=== PATIENT | female | born 1995 | race American Indian/Alaskan Native ===

== ENCOUNTER 2016-09-27 16:31 | Emergency (ER) | payer MEDICAID ==
[2016-09-27 22:29] LABS: Bilirubin,Urine NEG (Negative); Blood,Urine NEG (Negative); Ketones,Urine TR mg/dL (Negative); Leukocyte Esterase,Urine NEG (Negative); Mucus,Urine 3+ /HPF; Nitrite,Urine NEG (Negative); Protein,Urine <15 mg/dL mg/dL (Negative); Urobilinogen,Urine < 2.0 mg/dL (<2.0)
[2016-09-27 22:39] LABS: Basophils % (Auto) 0.4 % (0.0-1.8); Eosinophils % (Auto) 0.5 % (0.0-4.3); Hematocrit 37.2 % (30.3-42.9); Hemoglobin 12.2 gm/dl (10.1-14.3); Mean Corpuscular HGB Conc 33 % (30-34); Mean Corpuscular Hemoglobin 30 pg (28-32); Mean Corpuscular Volume 93 fl (79-97); Platelet Count 234 K/mm3 (140-440); Red Blood Count 4.02 M/mm3 (3.65-5.03); Red Cell Distribution Width 15.1 % (13.2-15.2); White Blood Count 9.9 K/mm3 (4.5-11.0)
--- NOTE | 2016-09-28 00:38 | Ultrasound Report ---
FINAL REPORT EXAM: US OB TRANSVAGINAL HISTORY: vaginal bleeding COMPARISON: None available. TECHNIQUE: Several real-time grayscale and color Doppler images were obtained. Transabdominal and transvaginal exam. FINDINGS: The uterus measures 7.9 x 4.5 x 5.8 centimeters. Endometrial stripe measures 15 millimeters. No IUP. Trace free fluid in the pelvis. Right ovary measures 2.8 x 2.2 x 2.9 centimeters. Left ovary measures 2.6 x 1.7 x 1.9 centimeters. Within the right ovary there is a 1.7 centimeter cystic structure which may reflect corpus luteum. In the left adnexal region adjacent to the ovary, there is a soft tissue structure measuring 1.6 x 2.5 x 1.7 centimeters. Yolk sac is present within the area of central cystic change. No pole identified. Findings are compatible with ectopic on the right. There is vascular flow to the ovaries. IMPRESSION: Left adnexal soft tissue structure with central area of cystic change containing a yolk sac. Findings are compatible with ectopic on the left. Trace free fluid in the pelvis which appears simple at this time. No evidence of ectopic rupture at this time. No IUP. There is vascular flow to the bilateral ovaries.
--- NOTE | 2016-09-28 00:39 | Ultrasound Report ---
FINAL REPORT EXAM: US OB < = 14 WEEKS FETUS HISTORY: vaginal bleeding COMPARISON: None of this . TECHNIQUE: Several real-time grayscale and color Doppler images were obtained. Transabdominal and transvaginal exam. FINDINGS: The uterus measures 7.9 x 4.5 x 5.8 centimeters. Endometrial stripe measures 15 millimeters. No IUP. Trace free fluid in the pelvis. Right ovary measures 2.8 x 2.2 x 2.9 centimeters. Left ovary measures 2.6 x 1.7 x 1.9 centimeters. Within the right ovary there is a 1.7 centimeter cystic structure which may reflect corpus luteum. In the left adnexal region adjacent to the ovary, there is a soft tissue structure measuring 1.6 x 2.5 x 1.7 centimeters. Yolk sac is present within the area of central cystic change. No pole identified. Findings are compatible with ectopic on the right. There is vascular flow to the ovaries. IMPRESSION: Left adnexal soft tissue structure with central area of cystic change containing a yolk sac. Findings are compatible with ectopic on the left. Trace free fluid in the pelvis which appears simple at this time. No evidence of ectopic rupture at this time. No IUP. There is vascular flow to the bilateral ovaries.
[2016-09-28] MEDS ORDERED: METHOTREXATE IM ONE (01:32)
--- NOTE | 2016-09-28 01:32 | Emergency Department Report ---
ED HPI - General Chief complaint: Vaginal Bleeding Stated complaint: LOWER L ABD PAIN/POSS ECTOPIC Source: patient Mode of arrival: Ambulatory Limitations: No Limitations - History of Present Illness Initial comments: Patient is a 20-year-old female with history of multiple ectopics presented today because of pelvic pain and vaginal spotting. Patient patient states that symptoms started yesterday. States that the pain got worse which is why she presented today. Has no associated nausea vomiting diarrhea. Concerned that this may be another ectopic. - Related Data Home Medications Medication Instructions Recorded Confirmed Last Taken No Known Home Medications [No 09/27/16 09/27/16 Unknown Reported Home Medications] Allergies Allergy/AdvReac Type Severity Reaction Status Date / Time peanut Allergy Swelling Verified 09/27/16 17:08 ED Review of Systems ROS: Stated complaint: LOWER L ABD PAIN/POSS ECTOPIC Other details as noted in HPI Comment: All other systems reviewed and negative Constitutional: denies: chills, fever Respiratory: denies: cough Cardiovascular: denies: chest pain Gastrointestinal: abdominal pain Genitourinary: denies: dysuria Skin: denies: rash Psychiatric: denies: anxiety ED Past Medical Hx - Past Medical History Hx Asthma: Yes Additional medical history: ectopic X 2 - Surgical History Past Surgical History?: No - Social History Smoking Status: Current Every Day Smoker Substance Use Type: Alcohol, Other - Medications Home Medications: Home Medications Medication Instructions Recorded Confirmed Last Taken Type No Known Home Medications [No 09/27/16 09/27/16 Unknown History Reported Home Medications] ED Physical Exam - General Limitations: No Limitations General appearance: alert, in no apparent distress - Head Head exam: Present: atraumatic - ENT ENT exam: Present: normal exam - Respiratory Respiratory exam: Present: normal lung sounds bilaterally. Absent: respiratory distress - Cardiovascular Cardiovascular Exam: Present: regular rate, normal rhythm - GI/Abdominal GI/Abdominal exam: Present: soft. Absent: distended, tenderness, guarding - Speculum exam: Present: other (small amount of vaginal bleeding) Bi-manual exam: Present: other (left adnexal and uterine tenderness, cervix closed) - Neurological Exam Neurological exam: Present: alert, oriented X3 - Psychiatric Psychiatric exam: Present: normal affect - Skin Skin exam: Absent: rash ED Course Vital Signs 09/27/16 17:10 Temperature 97.9 F Pulse Rate 83 Respiratory 17 Rate Blood Pressure 113/65 O2 Sat by Pulse 100 Oximetry - Reevaluation(s) Reevaluation #1: 09/28/16 01:45 I discussed the results and the plan of taking methotrexate with the patient. Patient is comfortable with taking methotrexate as she has taken it twice before for ectopic pregnancies. All questions were answered. - Consultations Consultation #1: 09/28/16 01:[address] 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 Recommended methotrexate treatment with follow- up in the office on Monday. ED Medical Decision Making - Lab Data Result diagrams: 09/27/16 22:09 Critical care attestation.: If time is entered above; I have spent that time in minutes in the direct care of this critically ill patient, excluding procedure time. ED Disposition Clinical Impression: Ectopic Qualifiers: Location of ectopic : tubal Intrauterine status: without intrauterine Qualified Code(s): O00.10 - Tubal without intrauterine Disposition: DISCHARGED TO HOME OR SELFCARE Is pt being admited?: No Does the pt Need Aspirin: No Condition: Stable Instructions: Ectopic (ED) Additional Instructions: [facility] [employer] [facility] [facility]. He must call the office tomorrow so that you can receive an appointment on Monday. Return to emergency room immediately if he have any lightheadedness, worsening pain, significant bleeding or any new symptoms. Make sure to avoid eating a lot of greens and veggies as well as decrease sun exposure due to being on methotrexate. Referrals: PRIMARY CARE, [Primary Care Provider] - 3-5 Days
[2016-09-28] MEDS ORDERED: TORADOL IM ONE (01:45)
[2016-09-28 04:01] VITALS: BP 119/65
== END 2016-09-28 04:04 | disposition home or self-care (01) ==
LOC: ED 16:31
DX: O00.10 Tubal pregnancy without intrauterine pregnancy (principal); J45.909 Unspecified asthma, uncomplicated; F17.200 Nicotine dependence, unspecified, uncomplicated; Z91.010 Allergy to peanuts; Z3A.00 Weeks of gestation of pregnancy not specified
CPT/HCPCS: 36415; 76801; 76817; 81001; 84702; 85025; 86850; 86900; 86901; 96372; 99284; J1885; J9260

== ENCOUNTER 2016-09-29 09:36 | Inpatient (IN) | payer MEDICAID ==
[2016-09-29] MEDS ORDERED: ACD-A IV ONE (10:00)
[2016-09-29 10:41] LABS: Basophils % (Auto) 0.4 % (0.0-1.8); Eosinophils % (Auto) 0.5 % (0.0-4.3); Hematocrit 32.2 % (30.3-42.9); Hemoglobin 10.8 gm/dl (10.1-14.3); Mean Corpuscular HGB Conc 34 % (30-34); Mean Corpuscular Hemoglobin 31 pg (28-32); Mean Corpuscular Volume 93 fl (79-97); Platelet Count 183 K/mm3 (140-440); Red Blood Count 3.46 M/mm3 (3.65-5.03); Red Cell Distribution Width 14.7 % (13.2-15.2); White Blood Count 7.7 K/mm3 (4.5-11.0)
[2016-09-29 10:56] LABS: Blood Urea Nitrogen 9 mg/dL (7-17); Calcium 8.4 mg/dL (8.4-10.2); Carbon Dioxide 23 mmol/L (22-30); Glucose 108 mg/dL (65-100)
[2016-09-29 10:57] LABS: Anion Gap 16 mmol/L; Chloride 103.7 mmol/L (98-107); Potassium 3.8 mmol/L (3.6-5.0); Sodium 139 mmol/L (137-145)
[2016-09-29] MEDS ORDERED: ZOFRAN IV ONE (11:25)
--- NOTE | 2016-09-29 11:32 | Emergency Department Report ---
HPI - General Chief Complaint: Abdominal Pain Time Seen by Provider: 09/29/16 11:13 - HPI HPI: Room 1 The patient is a 20-year-old female presenting with a chief complaint of pelvic pain. Patient was seen 09/27/2016 diagnosed with a left ectopic . Patient was given methotrexate and told to follow-up with [facility] on 09/30/2016. The patient states she awakened this morning at 06:00 and felt nauseous. Patient states she took her daughter to school this stopping drinking talya zara and Gatorade went back to bed. The patient states she got up at 08:20 with severe "wave of nausea." The patient states she went to the bathroom and another "severe wave of nausea and "hit her and she began vomiting. The patient states immediately after vomiting she developed severe abdominal pain and bilateral lower quadrants radiating to her back. The patient states the pain is been constant and severe since. Patient states she has had vaginal spotting since she initially presented to the ED and this has not changed. Location: Pelvis, back Duration: [see above] Quality: Pain Severity: Severe Modifying factors: [see above] Context: [see above] Mode of transportation: [not driving] ED Past Medical Hx - Past Medical History Previous Medical History?: Yes Hx Asthma: Yes Additional medical history: ectopic X 2 - Surgical History Past Surgical History?: No - Family History Family history: no significant - Social History Smoking Status: Current Every Day Smoker (1/7 pack per day) Substance Use Type: None (denies illicit drug use), Alcohol (occasional) - Medications Home Medications: Home Medications Medication Instructions Recorded Confirmed Last Taken Type Ibuprofen [Motrin] 600 mg PO Q8H PRN #14 tablet 09/28/16 09/29/16 09/29/16 Rx oxyCODONE /ACETAMINOPHEN [Percocet 1 tab PO Q6HR PRN #8 tablet 09/28/1609/29/16 Rx 5/325] ED Review of Systems ROS: Stated complaint: ABD PAIN/ECTOPIC Other details as noted in HPI Comment: All other systems reviewed and negative Constitutional: denies: chills, fever Eyes: denies: eye pain, eye discharge, vision change ENT: denies: ear pain, throat pain Respiratory: denies: cough, shortness of breath, wheezing Cardiovascular: denies: chest pain, palpitations Endocrine: no symptoms reported Gastrointestinal: abdominal pain, nausea, vomiting Genitourinary: abnormal menses Musculoskeletal: denies: back pain, joint swelling, arthralgia Skin: denies: rash, lesions Neurological: denies: headache, weakness, paresthesias Psychiatric: denies: anxiety, depression Hematological/Lymphatic: denies: easy bleeding, easy bruising Physical Exam - Physical Exam Vital Signs: Vital Signs 09/29/16 09/29/16 09/29/16 09:42 09:49 09:52 Pulse Rate 92 H 85 85 Respiratory 22 16 16 Rate Blood Pressure 106/38 106/38 Blood Pressure 106/38 [Left] O2 Sat by Pulse 100 100 Oximetry 09/29/16 09/29/16 09/29/16 09:53 10:00 11:00 Pulse Rate 81 101 H Respiratory 16 22 26 H Rate Blood Pressure 110/67 118/71 Blood Pressure [Left] O2 Sat by Pulse 100 100 Oximetry Physical Exam: GENERAL: The patient is well-developed well-nourished female lying on stretcher. Be in moderate discomfort. [] HEENT: Normocephalic. Atraumatic. Extraocular motions are intact. Patient has moist mucous membranes. NECK: Supple. Trachea midline CHEST/LUNGS: Clear to auscultation. There is no respiratory distress noted. HEART/CARDIOVASCULAR: Regular. There is no tachycardia. There is no gallop rub or murmur. ABDOMEN: Abdomen is soft, with diffuse tenderness palpation but greatest in the left lower quadrant. Patient has normal bowel sounds. There is no abdominal distention. SKIN: There is no rash. There is no edema. There is no diaphoresis. NEURO: The patient is awake, alert, and oriented. The patient is cooperative. The patient has normal speech MUSCULOSKELETAL: There is no evidence of acute injury. ED Course Vital Signs 09/29/16 09/29/16 09/29/16 09:42 09:49 09:52 Pulse Rate 92 H 85 85 Respiratory 22 16 16 Rate Blood Pressure 106/38 106/38 Blood Pressure 106/38 [Left] O2 Sat by Pulse 100 100 Oximetry 09/29/16 09/29/16 09/29/16 09:53 10:00 11:00 Pulse Rate 81 101 H Respiratory 16 22 26 H Rate Blood Pressure 110/67 118/71 Blood Pressure [Left] O2 Sat by Pulse 100 100 Oximetry - Consultations Consultation #1: 09/29/16 11:28 [facility] [employer] paged Consultation #2: 09/29/16 13:23 Dr. Brooke paged 13:[address] Brooke. Requests that the patient be sent to OR holding in preparation for surgery 09/29/16 13:45 ED Medical Decision Making - Lab Data Result diagrams: 09/29/16 10:21 09/29/16 10:21 Laboratory Tests 09/29/16 09/29/16 09/29/16 10:21 10:21 10:21 WBC 7.7 RBC 3.46 L Hgb 10.8 Hct 32.2 MCV 93 MCH 31 MCHC 34 RDW 14.7 Plt Count 183 Lymph % (Auto) 8.2 L [place] % (Auto) 5.5 Eos % (Auto) 0.5 Baso % (Auto) 0.4 Lymph # 0.6 L [place] # 0.4 Eos # 0.0 Baso # 0.0 Seg Neutrophils % 85.4 H Seg Neutrophils # 6.6 Sodium 139 Potassium 3.8 Chloride 103.7 Carbon Dioxide 23 Anion Gap 16 BUN 9 Creatinine 0.6 L Estimated GFR > 60 BUN/Creatinine Ratio 15.00 Glucose 108 H Calcium 8.4 HCG, Quant 9428 H Blood Type Antibody Screen 09/29/16 10:25 WBC RBC Hgb Hct MCV MCH MCHC RDW Plt Count Lymph % (Auto) [place] % (Auto) Eos % (Auto) Baso % (Auto) Lymph # [place] # Eos # Baso # Seg Neutrophils % Seg Neutrophils # Sodium Potassium Chloride Carbon Dioxide Anion Gap BUN Creatinine Estimated GFR BUN/Creatinine Ratio Glucose Calcium HCG, Quant Blood Type O POSITIVE Antibody Screen Negative - Radiology Data Radiology results: report reviewed (pelvic ultrasound), image reviewed (pelvic ultrasound) Pelvic ultrasound (results called at 13:22)- 7 cm hematoma surrounding previously visualized ectopic in the left adnexa. Free fluid that is complex in the pelvis - Differential Diagnosis ectopic Critical care attestation.: If time is entered above; I have spent that time in minutes in the direct care of this critically ill patient, excluding procedure time. 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
[2016-09-29] MEDS ORDERED: SUBLIMAZE IV ONE (11:49)
--- NOTE | 2016-09-29 13:33 | Ultrasound Report ---
Transabdominal and transvaginal OB ultrasound. History: Left pelvic pain status post methotrexate treatment for known ectopic . Findings: Comparison is made to the previous study on September 27, 2016. The complex mass consistent with necrotic is again identified on the left, but there has been marked interval change with interval development of a large complex collection surrounding the ectopic measuring approximately 7.8 x 3.4 x 7.2 cm. A yolk sac is still identified centrally and possible cardiac activity is seen. In addition, there is a fluid in the left adnexa and cul-de-sac which is complex consistent with hemorrhage. The uterus is empty with thickening of the endometrial echo. The right ovary is unremarkable. Impression: Interval development of complex collection and free fluid surrounding the left ectopic consistent with rupture. Comment: These findings were given by telephone to the emergency room physician at 1:20 PM on September 29.
[2016-09-29] MEDS ORDERED: NACL 0.9% 500 ML 500 ML IV ONE (13:46)
--- NOTE | 2016-09-29 13:47 | Admit Criteria Form ---
Admission Criteria Documentation: OBSTETRIC AND GYNECOLOGIC DISEASE GRG Clinical Indications for Admission to Inpatient Care (Place 'X' for any and all applicable criteria): Hospital admission is needed for appropriate care of the patient because of ANY ONE of the following (1)(2)(3): [ ]I. Hemodynamic instability, as indicated by ALL of the following (1)(2)(3)( 4)(5): [ ]a) Vital signs or other findings not as expected for chronic patient condition or baseline [ ]b) Instability indicated by ANY ONE of the following: [ ]i) Hypotension [ ]ii) Symptomatic tachycardia unresponsive to treatment (eg, analgesia, fluids, sedation as indicated) [ ]iii) Inadequate perfusion indicated by ANY ONE of the following: [ ]A. Lactic acidosis (greater than 2 mmol/ L) [ ]B. New abnormal capillary refill ( greater than 3 seconds) [ ]C. Reduced urine output [ ]D. New altered mental status [ ]iv) Orthostatic vital sign changes unresponsive to treatment (eg, fluids) [ ]v) Multiple IV fluid boluses required to maintain adequate blood pressure or perfusion [ ]vi) IV inotropic or vasopressor medication required to maintain adequate blood pressure or perfusion [ ]II. Obstetric infection requiring hospitalization indicated by ANY ONE of the following(13)(14): [ ]a) Chorioamnionitis [ ]b) Endometritis (except mild endometritis) [ ]c) Pelvic abscess [ ]d) Peritonitis [ ]e) Septic pelvic thrombophlebitis [ ]III. Amniotic fluid or pulmonary embolism(4)(5)(6) [X]IV. Suspected peritonitis or ectopic requiring monitoring beyond scope of 24 hours or observation care(7)(8) [ ]V. compromise requiring hospitalization indicated by ALL of the following(9)(10): [ ]a) compromise indicated by ANY ONE of the following(11): [ ]i) Abnormal heart rate monitoring [ ]ii) Abnormal contraction stress test [ ]iii) Abnormal biophysical profile [ ]iv) Abnormal Doppler flow in vessels (ie, Doppler velocimetry) (12) [ ]b) Persistence of compromise indicators during evaluation and observation monitoring [ ]. Ovarian hyperstimulation syndrome requiring hospitalization[A] indicated by ALL of the following(15): [ ]a) Recent ovarian stimulation with gonadotropins, or evidence on ultrasound of spontaneous emergence of large number of ovarian follicles [ ]b) Evidence of severe ovarian hyperstimulation syndrome indicated by ANY ONE of the following: [ ]i) Abdominal pain unresponsive to oral therapy [ ]ii) Acute respiratory distress syndrome [ ]iii) Electrolyte imbalance ( eg, hyponatremia, hyperkalemia) [ ]iv) Elevated liver enzymes [ ]v) Evidence of thromboembolism [ ]vi) Hemoconcentration (hematocrit greater than 45 % (0.45)) [ ]vii) Inability to maintain oral intake adequate to prevent hemoconcentration [ ]viii) Marked hypotension from baseline (eg, SBP 20 mmHg below patients usual pressure) [ ]ix) Oliguria or anuria [ ]x) Ovarian torsion [ ]xi) Pleural or pericardial effusion on x-ray or echocardiogram [ ]xii) Rapid increase in serum creatinine to greater than 1.2 mg/dL (106 micromoles/L) or creatinine clearance less than 50 mL/min/1.73m2 (0.84 mL/ sec/1.73m2) [ ]xiii) Ruptured ovarian cyst with hemorrhage [ ]xiv) Severe abdominal pain or peritoneal signs [ ]xv) Tense ascites that cannot be managed with paracentesis in outpatient setting [ ]VII.Pelvic infection requiring hospitalization indicated by ANY ONE of the following (16): [ ]a) Outpatient treatment has failed or is not appropriate (eg, inpatient monitoring required) [ ]b) Pelvic abscess [ ]c) Surgical emergency cannot be excluded (eg, rigid abdomen) [ ]d) Vomiting precluding outpatient and observation care management VIII. loss complications requiring inpatient medical treatment indicated by ANY ONE of the following (4)(7)(9): [ ]a) Fever [ ]b) Peritonitis [ ]c) Sepsis [ ]d) Severe abdominal pain [ ]IX. or patient requiring monitoring for severe heart failure, pulmonary disease, or other comorbid condition (eg, peripartum cardiomyopathy) (4)(17) [ ]X. patient with rupture of membranes requiring hospitalization indicated by ANY ONE of the following: [ ]a) Chorioamnionitis, cloudy amniotic fluid, or other evidence of infection [ ]b) compromise or other need for monitoring (11) [ ]c) Gestation longer than 23 weeks and ANY ONE of the following: [ ]i) Abnormal (noncephalic) presentation [ ]ii) Inadequate home environment (eg, home too far from hospital, unable to rapidly return to hospital) [ ]d) Temperature greater than 100.4 degrees F (38 degrees C)( oral) [ ]e) Threatened labor requiring monitoring beyond scope (eg, over 24 hours) of observation Care [ ] XI. complications, including severe lacerations, infections, or retained placenta (19) [ ] XII.Uterine bleeding with high-risk features indicated by ANY ONE of the following (4): [ ]a) Active major hemorrhage (eg, hemorrhage) [ ]b) Coagulopathy with active bleeding [ ]c) Gestational trophoblastic disease (eg, molar ) (20 ) [ ]d) (longer than 23 weeks) and ANY ONE of the following: [ ]i) Pain [ ]ii) Placental abruption, known or suspected [ ]iii) Placenta accrete, known or suspected(21) [ ]iv) Placenta previa, known or suspected [ ]v) Vasa previa [ ]e) Severe anemia [ ]XIII. Obstetric or Gynecologic Disease, condition or symptom for which ANY ONE of the following: [ ]a) Emergency and observation care have failed or are not considered appropriate ( Also use General Criteria: Observation Care Criteria as appropriate) [ ]b) Presence of a General Admission Criteria or Pediatric General Admission Criteria The original [facility] content created by [facility] has been revised. The portions of the content which have been revised are identified through the use of italic text or in bold, and [facility] has neither reviewed nor approved the modified material.All other unmodified content is copyright [facility]. Please see references footnoted in the original [facility] Admission Criteria Met: Yes
--- NOTE | 2016-09-29 13:50 | History and Physical Report ---
History of Present Illness Date of examination: 09/29/16 Date of admission: 09/29/16 Chief complaint: abdominal pain, nausea, vaginal bleeding History of present illness: Pt is a 20 year old -[place] female LMP 08/04/16 at 8w0d who presents with abdominal pain x 1 week, vaginal bleeding for the same duration. She was seen in ED on 09/27/16, diagnosed with Left ectopic and given methotrexate. She then presented earlier today c/o nausea and increased abdominal pain since this morning. On CT scan of the abdomen, pt was noted to have a 7 cm hematoma in the area of the previously diagnosed ectopic . Of note the pt has had two prior ectopic pregnancies both of the left side that were treated medically at outside institutions. Past History Past Medical History: asthma Past Surgical History: no surgical history Social history: no significant social history - Obstetrical History Expected Date of Delivery: 05/11/17 Actual Gestation: 8 Week(s) 0 Day(s) : 4 Para: 1 Hx # Term Pregnancies: 1 Number of Pregnancies: 0 Spontaneous Abortions: 2 (two left ectopic pregnancies ) Induced : 0 Number of Living Children: 1 Medications and Allergies Allergies Allergy/AdvReac Type Severity Reaction Status Date / Time peanut Allergy Swelling Verified 09/29/16 09:51 Home Medications Medication Instructions Recorded Confirmed Last Taken Type Ibuprofen [Motrin] 600 mg PO Q8H PRN #14 tablet 09/28/16 09/29/16 09/29/16 Rx oxyCODONE /ACETAMINOPHEN [Percocet 1 tab PO Q6HR PRN #8 tablet 09/28/1609/29/16 Rx 5/325] Review of Systems All systems: negative Gastrointestinal: abdominal pain, nausea, vomiting - Vital Signs Vital signs: Vital Signs Pulse Resp BP 92 H 22 106/38 09/29/16 09:42 09/29/16 09:42 09/29/16 09:42 Temp Pulse Resp BP Pulse Ox 89 16 113/63 100 09/29/16 13:36 09/29/16 13:36 09/29/16 13:36 09/29/16 13:22 - Physical Exam Breasts: Positive: deferred Cardiovascular: Regular rate Lungs: Positive: Clear to auscultation Abdomen: Positive: soft, tenderness, guarding Extremities: Positive: normal Results Result Diagrams: 09/29/16 10:21 09/29/16 10:21 Abnormal lab results 09/29/16 09/29/16 09/29/16 Range/Units 10:21 10:21 10:21 RBC 3.46 L (3.65-5.03) M/mm3 Lymph % (Auto) 8.2 L (13.4-35.0) % Lymph # 0.6 L (1.2-5.4) K/mm3 Seg Neutrophils % 85.4 H (40.0-70.0) % Creatinine 0.6 L (0.7-1.2) mg/dL Glucose 108 H (65-100) mg/dL HCG, Quant 9428 H (0-4) mIU/mL Crossmatch 09/29/16 Range/Units 10:25 RBC (3.65-5.03) M/mm3 Lymph % (Auto) (13.4-35.0) % Lymph # (1.2-5.4) K/mm3 Seg Neutrophils % (40.0-70.0) % Creatinine (0.7-1.2) mg/dL Glucose (65-100) mg/dL HCG, Quant (0-4) mIU/mL Crossmatch See Detail All other labs normal. Assessment and Plan A: Ruptured ectopic at 8 wks with hematoma Third ectopic in the left tube P: Proceed with exploratory laparotomy, evacuation of hematoma and left salpingectomy and other indicated procedures. Pt has previously been typed and crossed for two units of blood. Cell saver on stand-by.
[2016-09-29] MEDS ORDERED: ANCEF/STERILE WATER 2 GM/20 ML 20 ML IV NR (14:22)
[2016-09-29] MEDS ORDERED: DILAUDID ONE ×2 (14:30→16:18)
[2016-09-29] MEDS ORDERED: ZEMURON IV ONE (14:33)
[2016-09-29] MEDS ORDERED: DIPRIVAN 10 MG/ML IV ONE (14:33)
[2016-09-29] MEDS ORDERED: XYLOCAINE CARDIAC IV ONE (14:33)
[2016-09-29] MEDS ORDERED: QUELICIN ONE (14:33)
--- NOTE | 2016-09-29 14:39 | Anesthesia Consultation ---
Anesthesia Consult and Med Hx Date of service: 09/29/16 - Airway Anesthetic Teeth Evaluation: Good ROM Head & Neck: Adequate Mental/Hyoid Distance: Adequate Mallampati Class: Class II Intubation Access Assessment: Probably Good - Pre-Operative Health Status ASA Pre-Surgery Classification: ASA2, Emergency Proposed Anesthetic Plan: General - Pulmonary Hx Asthma: Yes - Hematic Hx Anemia: Yes
--- NOTE | 2016-09-29 14:41 | Anesthesia Day of Surgery ---
Anesthesia Day of Surgery - Day of Surgery Patient Examined: Yes Patient H&P Reviewed: Yes Patient is NPO: Yes
[2016-09-29] MEDS ORDERED: REGLAN ONE (14:42)
--- NOTE | 2016-09-29 14:42 | Anesthesia Day of Surgery ---
Anesthesia Day of Surgery - Day of Surgery Patient Examined: Yes Patient H&P Reviewed: Yes Patient is NPO: Yes (gingerale today - vomited up)
[2016-09-29] MEDS ORDERED: ANCEF/STERILE WATER 2 GM/20 ML 20 ML IV ONE (14:45)
[2016-09-29] MEDS ORDERED: VERSED IV NR (15:00)
[2016-09-29] MEDS ORDERED: PEPCID IV NR (15:00)
[2016-09-29] MEDS ORDERED: LACTATED RINGERS 1,000 ML IV SCH (15:00)
[2016-09-29] MEDS ORDERED: NACL 0.9% 1000 ML 1,000 ML ONE ×2 (15:20→17:22)
[2016-09-29] MEDS ORDERED: ZOFRAN ONE (15:27)
[2016-09-29] MEDS ORDERED: BLOXIVERZ ONE (15:27)
[2016-09-29] MEDS ORDERED: ROBINUL ONE (15:27)
[2016-09-29] MEDS ORDERED: NACL 0.9% IR ONE (16:00)
--- NOTE | 2016-09-29 17:04 | Post Operative Note ---
Date of procedure: 09/30/16 Pre-op diagnosis: Left ruptured ectopic Post-op diagnosis: same Findings: 1) Left tubal approximately 5 x 2 cm with hemorrhage 2) At least 1 L of blood in peritoneal cavity 3) Normal appearing left ovary, right ovary and right fallopian tube Procedure: 1) Exploratory laparotomy 2) Evacuation of hematoma 3) Left salpingectomy Anesthesia: GETA Surgeon: MARYCHUY GIBSON Estimated blood loss: other (1000 mL) Pathology: list (left ectopic and fallopian tube) Specimen disposition: to lab Condition: stable Disposition: PACU
--- NOTE | 2016-09-29 17:10 | Operative Report ---
Operative Report Operative Report: Date of Procedure: September 29, 2016 Preoperative diagnosis: Ruptured left ectopic Postoperative diagnosis: Same Surgeon: Renee Brooke MD Procedure: 1) Exploratory laparotomy 2) Evacuation of hematoma 3) Left salpingectomy Anesthesia: GETA Findings: 1) Left tubal approximately 5 x 2 cm with hemorrhage 2) At least 1 L of blood in peritoneal cavity 3) Normal appearing left ovary, right ovary and right fallopian tube EBL: 1000 mL IVF: 900 mL Urine output: 150 mL, clear at the end of the procedure Specimen: Left fallopian tube containing ectopic to pathology Drains: romano to gravity Complications: none. Counts correct x 2. Disposition: Stable to PACU Indication for Procedure: Pt is a 20 year old -Citizen Of [place] female at 8 wks by LMP with a h/o two previous left ectopic pregnancies who presents for surgical management of ruptured left ectopic . Operation In Detail: After the risks, benefits, alternatives and complications of the procedure were explained to the pt, she gave informed consent for the procedure. She was taken to the operating room with her IV noted to be running well and placed in the dorsal supine position. SCDs are in place and functioning. General endotracheal anesthesia was induced without difficulty. The pt was then prepped and draped in a normal sterile fashion. A timeout was performed. A Pfannenstiel incision was made with the knife and carried down to the fascia with the Bovie. The fascia was incised in the midline with Bovie and the fascial incision was extended bilaterally. Attention was then turned to the superior aspect of the incision which was then grasped with two Kochers, tented up and dissected off the rectus muscles. Attention was then turned to the inferior aspect of the incision which was grasped with two Kochers, tented up, and dissected off the rectus muscles. The rectus muscles were then bluntly in the midline. The peritoneum was then grasped between two hemostats and incised sharply. Hemoperitoneum was immediately noted. The peritoneal incision was stretched and extended with good visualization of the bladder. An Gonsalo self-retaining retractor was placed, and the pt was placed in Trendelenberg position. Obscuring blood was then suctioned out of the operative field. The left fallopian tube containing the ectopic was noted. Babcocks were used to elevate the left fallopian tube. Using a Ligasure device, the left fallopian tube was excised and sent to pathology. Excellent hemostasis was noted. The pt was taken out of Trendelenberg position at this time. The peritoneal cavity was copiously irrigated. Hemostasis was again noted. All instruments and retractors were then removed from the abdomen. The peritoneum was then reapproximated with 3-0 Vicryl in a running fashion. The rectus muscles were reapproximated with 2- 0 Vicryl in an interrupted fashion. The fascia was reapproximated with 0-Vicryl in a running fashion. The skin was reapproximated with 4-0 Vicryl in a subcuticular fashion. The incision was then covered with steri-strips and a pressure dressing. She was subsequently extubated and taken to the PACU in stable condition. The patient tolerated the procedure well. All instrument, lap and needle counts were correct x 2.
[2016-09-29] MEDS ORDERED: MORPHINE IV PRN ×2 (17:46)
[2016-09-29] MEDS ORDERED: NARCAN 0.4 MG/1 ML IV PRN (17:46)
[2016-09-29] MEDS ORDERED: TYLENOL PO PRN (17:46)
[2016-09-29] MEDS ORDERED: ZOFRAN IV PRN (17:46)
[2016-09-29] MEDS ORDERED: ANCEF/NS 1 GM/50 ML 50 ML IV SCH (18:00)
[2016-09-29] MEDS: TORADOL IV SCH ×2 (18:15→23:45)
[2016-09-29 22:11] LABS: Hematocrit 24.6 % (30.3-42.9); Hemoglobin 8.3 gm/dl (10.1-14.3)
[2016-09-30] MEDS: PERCOCET 5/325 PO PRN ×5 (03:23→20:20)
[2016-09-30] MEDS: TORADOL IV SCH (05:40)
[2016-09-30 06:59] LABS: Basophils % (Auto) 0.7 % (0.0-1.8); Eosinophils % (Auto) 0.4 % (0.0-4.3); Hematocrit 22.4 % (30.3-42.9); Hemoglobin 7.5 gm/dl (10.1-14.3); Mean Corpuscular HGB Conc 34 % (30-34); Mean Corpuscular Hemoglobin 31 pg (28-32); Mean Corpuscular Volume 93 fl (79-97); Platelet Count 137 K/mm3 (140-440); Red Cell Distribution Width 14.8 % (13.2-15.2); White Blood Count 5.7 K/mm3 (4.5-11.0)
[2016-09-30] MEDS ORDERED: ANCEF/NS 1 GM/50 ML 50 ML IV SCH (08:00)
--- NOTE | 2016-09-30 09:04 | Progress Note ---
Assessment and Plan A: POD#1 s/p ex lap, evacuation of hematoma, left salpingectomy; Symptomatic anemia P: Transfuse previously ordered two units of blood. Continue to monitor clinical status closely. Subjective - Subjective Date of service: 09/30/16 Principal diagnosis: ruptured ectopic Interval history: Pt reports feeling dizzy when she attempted to ambulate this morning. She is tolerating regular diet and has passed flatus. Patient reports: appetite normal, voiding normally, dizzy ambulation, pain well controlled, flatus, no bowel movement, no ambulating normally Objective - Vital Signs Latest vital signs: Vital Signs Temp Pulse Pulse Resp BP BP Pulse Ox 09/30/16 08:02 98.4 F 71 20 105/54 09/30/16 04:30 99 F 60 20 100/49 09/30/16 00:10 98.7 F 60 20 105/50 09/29/16 20:45 98.3 F 72 20 118/60 09/29/16 17:42 98.2 F 88 16 140/64 09/29/16 17:35 98.2 F 88 16 140/64 09/29/16 17:20 98.1 F 80 17 126/66 99 09/29/16 17:05 89 16 125/70 100 09/29/16 16:50 85 18 125/76 100 09/29/16 16:35 99 H 20 133/74 100 09/29/16 16:30 101 H 17 137/78 100 09/29/16 16:25 106 H 19 134/79 100 09/29/16 16:19 97.7 F 114 H 25 H 144/85 100 Intake and Output 09/29/16 09/30/16 09/30/16 22:59 06:59 14:59 Intake Total 1100 1440 Output Total 555 325 Balance 545 1115 Intake: IV 1100 700 NaCl 0.9% 1000 ml 1,000 500 650 ml As .ROUTE .STK-MED ONE Rx#:[id number] Ancef/Ns 1 gm/50 ml 50 ml 50 @ 100 mls/hr IV Q8H [facility] Rx#:[id number] Oral 740 Output: Urine 555 325 Indwelling Catheter 325 325 Other: Total, Intake Amount 740 Total, Output Amount 325 325 Voiding Method Indwelling Catheter Indwelling Catheter - Exam Breasts: Present: deferred Cardiovascular: Present: Regular rate Lungs: Present: Clear to auscultation Abdomen: Present: soft. Absent: distention Extremities: Present: normal Incision: Present: dressed - Labs Labs: Abnormal lab results 09/29/16 09/30/16 09/30/16 Range/Units 22:00 06:11 06:11 RBC 2.40 L (3.65-5.03) M/mm3 Hgb 8.3 L 7.5 L (10.1-14.3) gm/dl Hct 24.6 L D 22.4 L (30.3-42.9) % Plt Count 137 L (140-440) K/mm3 Lymph # 0.9 L (1.2-5.4) K/mm3 Seg Neutrophils % 78.6 H (40.0-70.0) % HCG, Quant 3104 H (0-4) mIU/mL
[2016-09-30] MEDS ORDERED: NACL 0.9% 250ML 250 ML IV ONE (10:00)
[2016-10-01] MEDS: PERCOCET 5/325 PO PRN ×4 (00:44→14:44)
[2016-10-01 01:49] LABS: Basophils % (Auto) 0.7 % (0.0-1.8); Eosinophils % (Auto) 1.7 % (0.0-4.3); Hematocrit 26.7 % (30.3-42.9); Mean Corpuscular HGB Conc 34 % (30-34); Mean Corpuscular Hemoglobin 31 pg (28-32); Mean Corpuscular Volume 92 fl (79-97); Platelet Count 119 K/mm3 (140-440); Red Blood Count 2.92 M/mm3 (3.65-5.03); Red Cell Distribution Width 14.9 % (13.2-15.2); White Blood Count 6.3 K/mm3 (4.5-11.0)
--- NOTE | 2016-10-01 11:04 | Progress Note ---
Assessment and Plan A: POD#2 s/p ex lap, evacuation of hematoma, left salpingectomy; Anemia s/p 2 units PRBCs P: Routine post op care. Discharge today with follow up in 2 weeks for incision check and repeat CBC. Subjective - Subjective Date of service: 10/01/16 Principal diagnosis: ruptured ectopic Interval history: Pt feeling better after her blood transfusion. She is ambulating without dizziness and her pain is well controlled. She has passed flatus but has not had a bowel movement. Patient reports: appetite normal, voiding normally, pain well controlled, flatus , ambulating normally, no dizzy ambulation, no nauseated Objective - Vital Signs Latest vital signs: Vital Signs Temp Pulse Pulse Resp BP BP 10/01/16 10:01 20 10/01/16 07:46 98.6 F 74 18 96/48 10/01/16 05:30 98.8 F 74 20 103/53 10/01/16 00:25 98.9 F 74 18 104/52 09/30/16 20:25 18 09/30/16 20:00 99 F 74 18 108/57 09/30/16 17:57 98.0 F 76 16 98/55 09/30/16 17:36 98.6 F 78 20 101/57 09/30/16 17:27 98.4 F 76 18 105/55 09/30/16 16:57 98.5 F 74 15 96/56 09/30/16 16:27 98.5 F 78 16 101/57 09/30/16 15:57 98.0 F 73 14 106/58 09/30/16 15:42 98.4 F 76 16 101/51 Intake and Output 09/30/16 10/01/16 10/01/16 22:59 06:59 14:59 Intake Total 610 240 360 Output Total 1 Balance 609 240 360 Intake: Oral 360 360 Intake, Free Water 240 Blood Product 250 Leukoreduced Red Blood 250 Cells Unit [id number] Output: Urine 1 Void 1 Other: Total, Intake Amount 120 360 Total, Output Amount 1 Voiding Method Toilet # Voids Void 1 1 1 - Exam Breasts: Present: deferred Cardiovascular: Present: Regular rate Lungs: Present: Clear to auscultation Abdomen: Present: soft Extremities: Present: normal Incision: Present: intact - Labs Labs: Abnormal lab results 10/01/16 Range/Units 01:36 RBC 2.92 L (3.65-5.03) M/mm3 Hgb 9.0 L (10.1-14.3) gm/dl Hct 26.7 L (30.3-42.9) % Plt Count 119 L (140-440) K/mm3
--- NOTE | 2016-10-01 11:08 | Discharge Summary ---
Providers - Providers Date of Admission: 09/30/16 14:38 Date of discharge: 10/01/16 Attending physician: MARYCHUY GIBSON Primary care physician: LINUX DEV[employer] ENGINEER Hospitalization Reason for admission: other (ruptured ectopic ) Procedure details: Please see operative note. Incision: intact complications: transfusion Discharge diagnosis: other (ruptured left ectopic , intraabdominal hemorrhage, acute blood loss anemia ) Hospital course: Patient was initially evaluated in the emergency department and subsequently had an exploratory laparotomy, evacuation of hematoma and left salpingectomy secondary to ruptured left ectopic . Her postoperative course was complicated by symptomatic anemia. She was transfused 2 units of packed red blood cells. Thrombocytopenia was also noted postoperatively. She met discharge criteria on postoperative day #2 and will follow up in 2 weeks for incision check and repeat CBC. Condition at discharge: Serious Disposition: DISCHARGED TO HOME OR SELFCARE - Discharge Diagnoses (1) Ruptured ectopic Status: Acute (2) Acute blood loss anemia Status: Acute (3) Intra abdominal hemorrhage Status: Resolved (4) Thrombocytopenia Status: Acute Plan - Discharge Medications Prescriptions: Docusate Sodium [Colace] 100 mg PO BID PRN #60 capsule PRN Reason: Constipation Ferrous Sulfate [Feosol 325 MG tab] 325 mg PO TID #90 tablet Ibuprofen [Motrin 600 MG tab] 600 mg PO Q6H PRN #30 tablet PRN Reason: Pain oxyCODONE /ACETAMINOPHEN [Percocet 5/325] 1 tab PO Q6HR PRN #30 tablet PRN Reason: Pain - Provider Discharge Summary Activity: routine, no sex for 6 weeks, no heavy lifting 4 weeks, no strenuous exercise Diet: routine Instructions: routine Additional instructions: [] Smoking cessation referral if applicable(refer to patient education folder for contact #) [] Refer to [facility]'s [facility] Booklet Call your doctor immediately for: * Fever > 100.5 * Heavy vaginal bleeding ( >1 pad per hour) * Severe persistent headache * Shortness of breath * Reddened, hot, painful area to leg or breast * Drainage or odor from incision. * Keep incision clean and dry at all times and follow doctor's instructions regarding bathing/showering - Follow up plan Follow up: ADI MIDDLETON MD [Primary Care Provider] - 3-5 Days MARYCHUY GIBSON MD [Staff Physician] - 10/13/16 (incision check and CBC)
[2016-10-01] MEDS: MILK OF MAGNESIA PO SCH ×2 (11:25→15:27)
[2016-10-01 17:06] VITALS: BP 106/60
== END 2016-10-01 16:00 | disposition home or self-care (01) | DRG 777 ==
LOC: ED 09:36 → OR 14:50 → OB 14:51 → OBSVTOIN 09-30 14:38
PROVIDERS: ADMIT Obstetrics & Gynecology; ATTEND Obstetrics & Gynecology
PROC: 0UC Female Reproductive System, Extirpation (ICD-10-PCS; principal; 2016-09-29)
PROC: 0UB60ZZ Excision of Left Fallopian Tube, Open Approach (ICD-10-PCS; 2016-09-29)
PROC: 10T20ZZ Resection of Products of Conception, Ectopic, Open Approach (ICD-10-PCS; 2016-09-29)
PROC: 30233N1 Transfusion of Nonautologous Red Blood Cells into Peripheral Vein, Percutaneous Approach (ICD-10-PCS; 2016-09-30)
DX: O00.10 Tubal pregnancy without intrauterine pregnancy (principal); O08.1 Delayed or excessive hemorrhage following ectopic and molar pregnancy; O99.511 Diseases of the respiratory system complicating pregnancy, first trimester; O99.331 Smoking (tobacco) complicating pregnancy, first trimester; F17.210 Nicotine dependence, cigarettes, uncomplicated; J45.909 Unspecified asthma, uncomplicated; D62 Acute posthemorrhagic anemia; D69.6 Thrombocytopenia, unspecified; Z3A.08 8 weeks gestation of pregnancy; O99.011 Anemia complicating pregnancy, first trimester
CPT/HCPCS: 36415; 76801; 76817; 80048; 84702; 85014; 85018; 85025; 86850; 86900; 86901; 86920; 88305; 96374; 96375; G0378; J0330; J0690; J1170; J1885; J2001; J2250; J2270; J2405; J2704; J2710; J2765; J3010; J7030; J7050; P9016

== ENCOUNTER 2018-05-06 23:25 | Emergency (ER) | payer SELFPAY ==
[2018-05-07 00:29] LABS: Basophils # (Auto) 0.1 K/mm3 (0.0-0.1); Basophils % (Auto) 1.1 % (0.0-1.8); Eosinophils # (Auto) 0.1 K/mm3 (0.0-0.4); Eosinophils % (Auto) 1.6 % (0.0-4.3); Hematocrit 34.5 % (30.3-42.9); Hemoglobin 11.7 gm/dl (10.1-14.3); Lymphocytes # (Auto) 2.2 K/mm3 (1.2-5.4); Lymphocytes % (Auto) 26.6 % (13.4-35.0); Mean Corpuscular HGB Conc 34 % (30-34); Mean Corpuscular Hemoglobin 32 pg (28-32); Mean Corpuscular Volume 93 fl (79-97); Monocytes # (Auto) 0.6 K/mm3 (0.0-0.8); Monocytes % (Auto) 7.2 % (0.0-7.3); Platelet Count 238 K/mm3 (140-440); Red Blood Count 3.69 M/mm3 (3.65-5.03); Red Cell Distribution Width 14.4 % (13.2-15.2)
--- NOTE | 2018-05-07 02:35 | Ultrasound Report ---
FINAL REPORT PROCEDURE: US OB TRANS ABDOMINAL AND TRANSVAGINAL. TECHNIQUE: Real-time transabdominal and transvaginal sonography of the uterus, placenta, amniotic fluid, adnexa, and fetus was performed with image documentation. Measurements were obtained to determine age/size. M-mode Doppler was used to document heartbeat. HISTORY: Abdominal pain. COMPARISON: No prior studies are available for comparison. FINDINGS: LMP: 03/23/2018. Clinical age: 6 weeks 3 days. EDC: 12/28/2018. UTERUS Size: 9.0 X 3.0 X 5.9 cm. Endometrial thickness: 17.9 mm. Orientation: anteverted. Cervix: Normal. Fibroids/masses: None. RIGHT Ovary: 3.4 X 2.2 X 1.7 cm. Appearance: Normal flow. Complex 2.8 cm mass about the right adnexa. LEFT Ovary: 2.4 x 1.8 x 1.2 cm. Appearance: Normal flow. Pelvic fluid: Small to moderate amount of free fluid. Other: None. IMPRESSION: There is no sonographic evidence of intrauterine . Complex mass about the right adnexa. Although could represent complex cyst, concern for possible ectopic . Small to moderate amount of free fluid. Recommend clinical correlation, correlation with beta HCG, and short-term followup pelvic ultrasound.
[2018-05-07] MEDS ORDERED: NACL 0.9% 1000 ML 1,000 ML IV ONE ×3 (02:39→07:16)
--- NOTE | 2018-05-07 02:39 | Emergency Department Report ---
ED Abdominal Pain HPI - General Chief Complaint: Abdominal Pain Stated Complaint: ABDOMINAL AND BACK PAIN Time Seen by Provider: 05/07/18 02:39 Source: patient, family Mode of arrival: Ambulatory Limitations: No Limitations - History of Present Illness MD Complaint: abdominal pain -: week(s) (1) Location: RLQ Radiation: none Migration to: no migration Severity: severe Severity scale (0 -10): 8 Quality: cramping, sharp Consistency: constant Improves With: nothing Worsens With: nothing Associated Symptoms: denies other symptoms - Related Data Previous Rx's Medication Instructions Recorded Last Taken Type Ibuprofen [Motrin] 600 mg PO Q8H PRN #14 tablet 09/28/16 09/29/16 Rx oxyCODONE /ACETAMINOPHEN [Percocet 1 tab PO Q6HR PRN #8 tablet 09/28/16 Rx 5/325] Docusate Sodium [Colace] 100 mg PO BID PRN #60 capsule 09/30/16 Unknown Rx Ferrous Sulfate [Feosol 325 MG tab] 325 mg PO TID #90 tablet 09/30/16 Unknown Rx Ibuprofen [Motrin 600 MG tab] 600 mg PO Q6H PRN #30 tablet 09/30/16 Unknown Rx oxyCODONE /ACETAMINOPHEN [Percocet 1 tab PO Q6HR PRN #30 tablet 09/30/16 Unknown Rx 5/325] HYDROcodone/ACETAMINOPHEN [Jackson 1 each PO Q8H PRN #15 tablet 05/07/18 Unknown Rx 7.5-325 Tablet] metroNIDAZOLE 0.75%(NF) [Metrogel 1 applicatio TP BID 5 Days tube 05/07/18 Unknown Rx 0.75% TOPICAL] Allergies Allergy/AdvReac Type Severity Reaction Status Date / Time peanut Allergy Swelling Verified 09/29/16 09:51 ED Review of Systems ROS: Stated complaint: ABDOMINAL AND BACK PAIN Other details as noted in HPI Comment: All other systems reviewed and negative Constitutional: denies: chills, fever Eyes: denies: eye pain ENT: denies: ear pain, throat pain Respiratory: denies: cough, shortness of breath Cardiovascular: denies: chest pain, palpitations, dyspnea on exertion Endocrine: no symptoms reported Gastrointestinal: abdominal pain. denies: nausea, vomiting, diarrhea Genitourinary: denies: urgency, dysuria, frequency Musculoskeletal: denies: back pain, joint swelling Skin: denies: rash, lesions, change in color Neurological: denies: headache, weakness, numbness Psychiatric: denies: anxiety, depression Hematological/Lymphatic: denies: easy bleeding, easy bruising ED Past Medical Hx - Past Medical History Hx Pulmonary Embolism: No Hx Asthma: Yes (USES INHALER PRN) Hx COPD: No Hx Tuberculosis: No Additional medical history: ectopic X 2 - Surgical History Past Surgical History?: No Additional Surgical History: Left Salpingectomy - Social History Smoking Status: Current Every Day Smoker Substance Use Type: None - Medications Home Medications: Home Medications Medication Instructions Recorded Confirmed Last Taken Type Ibuprofen [Motrin] 600 mg PO Q8H PRN #14 tablet 09/28/16 09/29/16 09/29/16 Rx oxyCODONE /ACETAMINOPHEN [Percocet 1 tab PO Q6HR PRN #8 tablet 09/28/1609/29/16 Rx 5/325] Docusate Sodium [Colace] 100 mg PO BID PRN #60 capsule 09/30/16 Unknown Rx Ferrous Sulfate [Feosol 325 MG tab] 325 mg PO TID #90 tablet 09/30/16 Unknown Rx Ibuprofen [Motrin 600 MG tab] 600 mg PO Q6H PRN #30 tablet 09/30/16 Unknown Rx oxyCODONE /ACETAMINOPHEN [Percocet 1 tab PO Q6HR PRN #30 tablet 09/30/16 Unknown Rx 5/325] HYDROcodone/ACETAMINOPHEN [Jackson 1 each PO Q8H PRN #15 tablet 05/07/18 Unknown Rx 7.5-325 Tablet] metroNIDAZOLE 0.75%(NF) [Metrogel 1 applicatio TP BID 5 Days tube 05/07/18 Unknown Rx 0.75% TOPICAL] ED Physical Exam - General Limitations: No Limitations General appearance: alert, in no apparent distress - Head Head exam: Present: atraumatic, normocephalic, normal inspection - Eye Eye exam: Present: normal appearance, PERRL, EOMI Pupils: Present: normal accommodation - ENT ENT exam: Present: normal exam, normal orophraynx - Neck Neck exam: Present: normal inspection, full ROM. Absent: tenderness - Respiratory Respiratory exam: Present: normal lung sounds bilaterally. Absent: respiratory distress, wheezes, rales, rhonchi, stridor - Cardiovascular Cardiovascular Exam: Present: regular rate, normal rhythm, normal heart sounds - GI/Abdominal GI/Abdominal exam: Present: soft, tenderness (RLQ), guarding, rebound, normal bowel sounds. Absent: distended, rigid - External exam: Present: normal external exam. Absent: swelling, lacerations Speculum exam: Present: normal speculum exam. Absent: erythema, vaginal discharge, cervical discharge, vaginal bleeding, tissue, laceration Bi-manual exam: Present: adnexal tenderness, other ([place] was Ms. Shari RN.) - Extremities Exam Extremities exam: Present: normal inspection, full ROM, normal capillary refill - Back Exam Back exam: Present: normal inspection, full ROM. Absent: tenderness - Neurological Exam Neurological exam: Present: alert, oriented X3, CN II-XII intact - Psychiatric Psychiatric exam: Present: normal affect, normal mood - Skin Skin exam: Present: warm, dry, intact, normal color. Absent: rash ED Course Vital Signs 05/06/18 05/06/18 05/07/18 23:29 23:54 04:01 Temperature 99.2 F 99.2 F Pulse Rate 86 81 76 Respiratory 18 18 16 Rate Blood Pressure 121/70 121/70 116/50 O2 Sat by Pulse 99 99 99 Oximetry 05/07/18 05/07/18 05/07/18 04:15 04:31 04:45 Temperature Pulse Rate 68 Respiratory 20 22 22 Rate Blood Pressure 126/60 92/33 102/38 O2 Sat by Pulse 100 100 100 Oximetry 05/07/18 07:01 Temperature Pulse Rate 88 Respiratory 25 H Rate Blood Pressure 110/61 O2 Sat by Pulse 99 Oximetry - Reevaluation(s) Reevaluation #1: 05/07/18 03:05. I consulted the PERSONAL COMPUTER NETWORK ANALYST doctor environmental remediation consultant Dr Sylwia Walden. She came to the ED and evaluated patient and recommend discharging patient home after give her Methotrexate 100 mg IM.. 05/07/18 08:46 ED Medical Decision Making - Lab Data Result diagrams: 05/07/18 00:16 05/07/18 03:08 - Radiology Data Radiology results: report reviewed, image reviewed - Medical Decision Making RLQ abdominal pain. Critical Care Time: Yes Critical care time in (mins) excluding proc time.: 45 Critical care attestation.: If time is entered above; I have spent that time in minutes in the direct care of this critically ill patient, excluding procedure time. ED Disposition Clinical Impression: Bacterial vaginosis Ectopic Qualifiers: Location of ectopic : abdominal Intrauterine status: without intrauterine Qualified Code(s): O00.00 - Abdominal without intrauterine Abdominal pain Qualifiers: Abdominal location: right lower quadrant Qualified Code(s): R10.31 - Right lower quadrant pain Disposition: TO HOME OR SELFCARE Is pt being admited?: No Does the pt Need Aspirin: No Condition: Stable Instructions: Bacterial Vaginosis (ED), Abdominal Pain (ED) Additional Instructions: Follow up with your regular [facility] tomorrow morning as scheduled or with Dr Sylwia Walden. Return to the ED if your condition worsens. Prescriptions: HYDROcodone/ACETAMINOPHEN [Jackson 7.5-325 Tablet] 1 each PO Q8H PRN #15 tablet PRN Reason: Pain , Severe (7-10) metroNIDAZOLE 0.75%(NF) [Metrogel 0.75% TOPICAL] 1 applicatio TP BID 5 Days tube Referrals: PRIMARY CARE, [Primary Care Provider] - 3-5 Days SYLWIA WALDEN MD [Staff Physician] - 3-5 Days Forms: STI Treatment and Prevention, Work/School Release Form(ED), Methotrexate D/C Instructions Time of Disposition: 08:45
[2018-05-07 03:38] LABS: INR 0.97 (0.87-1.13)
[2018-05-07 03:39] LABS: Partial Thromboplastin Time 32.2 Sec. (24.2-36.6)
[2018-05-07 03:42] LABS: Alanine Aminotransferase 10 units/L (7-56); Albumin 4.3 g/dL (3.9-5); BUN/Creatinine Ratio 14; Blood Urea Nitrogen 7 mg/dL (7-17); Calcium 9.1 mg/dL (8.4-10.2); Hemolysis Index 1
[2018-05-07 05:59] LABS: Bacteria,Urine 1+ /HPF (Negative); Bilirubin,Urine NEG (Negative); Blood,Urine NEG (Negative); Color,Urine Yellow (Yellow); Mucus,Urine FEW /HPF; Protein,Urine <15 mg/dL mg/dL (Negative); Urobilinogen,Urine < 2.0 mg/dL (<2.0); WBC,Urine < 1.0 /HPF (0.0-6.0)
[2018-05-07 07:12] VITALS: BP 110/61
[2018-05-07] MEDS ORDERED: SUBLIMAZE IV ONE (07:16)
--- NOTE | 2018-05-07 07:59 | Consultation ---
History of Present Illness Consult date: 05/07/18 Reason for consult: other (ectopic ) History of present illness: Patient is a 22 year old who presents with right sided ectopic . All of patient previous pregnancies have been ectopic as well but on the left side. The previous ones were treated with methotrexate except for the last one which was treated with salpingectomy. 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 Social history: single - Obstetrical History : 4 Medications and Allergies Allergies Allergy/AdvReac Type Severity Reaction Status Date / Time peanut Allergy Swelling Verified 09/29/16 09:51 Home Medications Medication Instructions Recorded Confirmed Last Taken Type Ibuprofen [Motrin] 600 mg PO Q8H PRN #14 tablet 09/28/16 09/29/16 09/29/16 Rx oxyCODONE /ACETAMINOPHEN [Percocet 1 tab PO Q6HR PRN #8 tablet 09/28/1609/29/16 Rx 5/325] Docusate Sodium [Colace] 100 mg PO BID PRN #60 capsule 09/30/16 Unknown Rx Ferrous Sulfate [Feosol 325 MG tab] 325 mg PO TID #90 tablet 09/30/16 Unknown Rx Ibuprofen [Motrin 600 MG tab] 600 mg PO Q6H PRN #30 tablet 09/30/16 Unknown Rx oxyCODONE /ACETAMINOPHEN [Percocet 1 tab PO Q6HR PRN #30 tablet 09/30/16 Unknown Rx 5/325] Active Meds: Active Medications Sodium Chloride (Nacl 0.9% 1000 Ml) 1,000 mls @ 999 mls/hr IV BOLUS ONE Stop: 05/07/18 07:55 Sodium Chloride (Nacl 0.9% 1000 Ml) 1,000 mls @ 999 mls/hr IV BOLUS ONE Stop: 05/07/18 08:16 Methotrexate (Methotrexate) 100 mg 50 mg/m2 (100 mg) IM ONCE ONE Stop: 05/07/18 07:49 Review of Systems All systems: negative Genitourinary: pelvic pain - Vital Signs Vital signs: Vital Signs Temp Pulse Resp BP Pulse Ox 99.2 F 86 18 121/70 99 05/06/18 23:29 05/06/18 23:29 05/06/18 23:29 05/06/18 23:29 05/06/18 23:29 Temp Pulse Resp BP Pulse Ox 99.2 F 88 25 H 110/61 99 05/06/18 23:54 05/07/18 07:01 05/07/18 07:01 05/07/18 07:01 05/07/18 07:01 - Physical Exam Breasts: Cardiovascular: Regular rate, Normal S1, Normal S2 Abdomen: Positive: normal appearance, soft, normal bowel sounds. Negative: distention, tenderness Genitourinary (Female): Positive: normal external genitalia, other (right sided tenderness) Vulva: both: normal Vagina: Positive: normal moisture. Negative: discharge Cervix: Negative: lesion, discharge Uterus: Positive: normal size, normal contour Adnexa: both: normal Anus/Rectum: Positive: normal perianal skin, heme negative. Negative: rectal mass, hemorrhoids Extremities: Deep Tendon Reflex Grade: Normal +2 Results Result Diagrams: 05/07/18 00:16 05/07/18 03:08 Abnormal lab results 05/07/18 05/07/18 Range/Units 00:16 03:08 Creatinine 0.5 L (0.7-1.2) mg/dL HCG, Quant 3590 H (0-4) mIU/mL All other labs normal. Assessment and Plan Patient here with early ectopic . Hemodynamically stable. HCG 3500. Small complex mass in adnexa with no evidence of fht. Patient is good candidate for methotrexated. Will order same.
== END 2018-05-07 10:23 | disposition home or self-care (01) ==
LOC: ED 23:25
DX: O00.00 Abdominal pregnancy without intrauterine pregnancy (principal); R10.31 Right lower quadrant pain; N76.0 Acute vaginitis; B96.89 Other specified bacterial agents as the cause of diseases classified elsewhere; Z91.010 Allergy to peanuts
CPT/HCPCS: 36415; 76801; 76817; 80053; 81001; 84702; 85025; 85610; 85730; 87210; 87591; 96372; 96374; 99291; J3010; J7030; J9260

== ENCOUNTER 2018-05-09 07:40 | Inpatient (IN) | payer MEDICAID ==
[2018-05-09] MEDS ORDERED: NACL 0.9% 1000 ML 1,000 ML IV ONE ×2 (08:03→08:11)
--- NOTE | 2018-05-09 08:03 | Emergency Department Report ---
ED Abdominal Pain HPI - General Chief Complaint: Abdominal Pain Stated Complaint: STOMACH/LOWER BACK PAIN Time Seen by Provider: 05/09/18 08:03 Source: patient Mode of arrival: Ambulatory Limitations: No Limitations - History of Present Illness MD Complaint: abdominal pain -: Gradual Location: RLQ Radiation: none Migration to: no migration Severity: severe Severity scale (0 -10): 8 Quality: cramping, sharp Consistency: constant Improves With: nothing Worsens With: nothing Associated Symptoms: denies other symptoms - Related Data Previous Rx's Medication Instructions Recorded Last Taken Type Ibuprofen [Motrin] 600 mg PO Q8H PRN #14 tablet 09/28/16 09/29/16 Rx oxyCODONE /ACETAMINOPHEN [Percocet 1 tab PO Q6HR PRN #8 tablet 09/28/16 Rx 5/325] Docusate Sodium [Colace] 100 mg PO BID PRN #60 capsule 09/30/16 Unknown Rx Ferrous Sulfate [Feosol 325 MG tab] 325 mg PO TID #90 tablet 09/30/16 Unknown Rx oxyCODONE /ACETAMINOPHEN [Percocet 1 tab PO Q6HR PRN #30 tablet 09/30/16 Unknown Rx 5/325] metroNIDAZOLE 0.75%(NF) [Metrogel 1 applicatio TP BID 5 Days tube 05/07/18 Unknown Rx 0.75% TOPICAL] HYDROcodone/ACETAMINOPHEN [[place] 1 each PO Q8H PRN #15 tablet 05/09/18 Unknown Rx 7.5-325 Tablet] Ibuprofen [Motrin 600 MG tab] 600 mg PO Q6H PRN #30 tablet 05/09/18 Unknown Rx Allergies Allergy/AdvReac Type Severity Reaction Status Date / Time peanut Allergy Swelling Verified 05/09/18 13:54 ED Review of Systems ROS: Stated complaint: STOMACH/LOWER BACK PAIN Other details as noted in HPI Comment: All other systems reviewed and negative Constitutional: denies: chills, fever Eyes: denies: eye pain ENT: denies: ear pain Respiratory: denies: cough, shortness of breath Cardiovascular: denies: chest pain, palpitations, dyspnea on exertion Endocrine: no symptoms reported Gastrointestinal: denies: abdominal pain, nausea, vomiting, diarrhea Genitourinary: denies: urgency, dysuria, frequency Musculoskeletal: denies: back pain, joint swelling Skin: denies: rash, lesions Neurological: denies: headache, weakness, numbness Psychiatric: denies: anxiety, depression Hematological/Lymphatic: denies: easy bleeding, easy bruising ED Past Medical Hx - Past Medical History Hx Pulmonary Embolism: No Hx Asthma: Yes (USES INHALER PRN) Hx COPD: No Hx Tuberculosis: No Additional medical history: ectopic X 3 - Surgical History Additional Surgical History: Left Salpingectomy - Social History Smoking Status: Current Every Day Smoker Substance Use Type: None - Medications Home Medications: Home Medications Medication Instructions Recorded Confirmed Last Taken Type Ibuprofen [Motrin] 600 mg PO Q8H PRN #14 tablet 09/28/16 09/29/16 09/29/16 Rx oxyCODONE /ACETAMINOPHEN [Percocet 1 tab PO Q6HR PRN #8 tablet 09/28/1609/29/16 Rx 5/325] Docusate Sodium [Colace] 100 mg PO BID PRN #60 capsule 09/30/16 Unknown Rx Ferrous Sulfate [Feosol 325 MG tab] 325 mg PO TID #90 tablet 09/30/16 Unknown Rx oxyCODONE /ACETAMINOPHEN [Percocet 1 tab PO Q6HR PRN #30 tablet 09/30/16 Unknown Rx 5/325] metroNIDAZOLE 0.75%(NF) [Metrogel 1 applicatio TP BID 5 Days tube 05/07/18 Unknown Rx 0.75% TOPICAL] HYDROcodone/ACETAMINOPHEN [[place] 1 each PO Q8H PRN #15 tablet 05/09/18 Unknown Rx 7.5-325 Tablet] Ibuprofen [Motrin 600 MG tab] 600 mg PO Q6H PRN #30 tablet 05/09/18 Unknown Rx ED Physical Exam - General Limitations: No Limitations General appearance: alert, in no apparent distress - Head Head exam: Present: atraumatic, normocephalic, normal inspection - Eye Eye exam: Present: normal appearance, PERRL, EOMI Pupils: Present: normal accommodation - ENT ENT exam: Present: normal exam, normal orophraynx, mucous membranes moist - Neck Neck exam: Present: normal inspection, full ROM. Absent: tenderness - Respiratory Respiratory exam: Present: normal lung sounds bilaterally. Absent: respiratory distress, wheezes, rales, rhonchi, stridor - Cardiovascular Cardiovascular Exam: Present: regular rate, normal rhythm, normal heart sounds - GI/Abdominal GI/Abdominal exam: Present: soft, normal bowel sounds. Absent: distended, tenderness, guarding, rebound, rigid - Extremities Exam Extremities exam: Present: normal inspection, full ROM, normal capillary refill - Back Exam Back exam: Present: normal inspection, full ROM. Absent: tenderness, CVA tenderness (R), CVA tenderness (L) - Neurological Exam Neurological exam: Present: alert, oriented X3, CN II-XII intact - Psychiatric Psychiatric exam: Present: normal affect, normal mood - Skin Skin exam: Present: warm, dry, intact, normal color. Absent: rash ED Course Vital Signs 05/09/18 05/09/18 05/09/18 07:45 09:00 09:59 Temperature 99.4 F Pulse Rate 103 H 88 91 H Respiratory 18 17 Rate Blood Pressure 132/68 102/51 102/51 O2 Sat by Pulse 100 98 96 Oximetry 05/09/18 05/09/18 05/09/18 10:01 10:31 11:03 Temperature Pulse Rate 85 79 106 H Respiratory 22 25 H 20 Rate Blood Pressure 102/51 118/72 123/65 O2 Sat by Pulse 99 100 100 Oximetry 05/09/18 05/09/18 05/09/18 11:31 12:01 12:31 Temperature Pulse Rate 95 H 78 Respiratory 21 25 H Rate Blood Pressure 127/62 105/59 109/56 O2 Sat by Pulse 100 100 100 Oximetry 05/09/18 12:45 Temperature Pulse Rate Respiratory Rate Blood Pressure 109/64 O2 Sat by Pulse 100 Oximetry - Reevaluation(s) Reevaluation #1: 05/09/18 16:32 I consulted the OBGYN mobile phone salesperson Dr Sylwia Walden. She will admit patient to the hospital for further evaluation and management. ED Medical Decision Making - Lab Data Result diagrams: 05/09/18 08:22 - Radiology Data Radiology results: report reviewed, image reviewed - Medical Decision Making RLQ abdominal Pain. Ectopic . Critical Care Time: Yes Critical care time in (mins) excluding proc time.: 45 Critical care attestation.: If time is entered above; I have spent that time in minutes in the direct care of this critically ill patient, excluding procedure time. ED Disposition Clinical Impression: Ectopic Qualifiers: Location of ectopic : tubal Intrauterine status: without intrauterine Laterality: right Qualified Code(s): O00.101 - Right tubal without intrauterine Abdominal pain Qualifiers: Abdominal location: right lower quadrant Qualified Code(s): R10.31 - Right lower quadrant pain Disposition: DC-09 OP ADMIT IP TO THIS HOSP Is pt being admited?: Yes Does the pt Need Aspirin: No Condition: Good Time of Disposition: 11:43
[2018-05-09] MEDS ORDERED: MORPHINE IV ONE (08:11)
[2018-05-09] MEDS ORDERED: ZOFRAN IV ONE (08:11)
[2018-05-09 08:55] LABS: Basophils % (Auto) 0.4 % (0.0-1.8); Eosinophils % (Auto) 0.2 % (0.0-4.3); Hematocrit 31.3 % (30.3-42.9); Hemoglobin 10.8 gm/dl (10.1-14.3); Lymphocytes # (Auto) 0.8 K/mm3 (1.2-5.4); Lymphocytes % (Auto) 8.2 % (13.4-35.0); Mean Corpuscular HGB Conc 35 % (30-34); Mean Corpuscular Hemoglobin 32 pg (28-32); Mean Corpuscular Volume 93 fl (79-97); Monocytes # (Auto) 0.4 K/mm3 (0.0-0.8); Monocytes % (Auto) 4.7 % (0.0-7.3); Platelet Count 186 K/mm3 (140-440); Red Blood Count 3.35 M/mm3 (3.65-5.03)
[2018-05-09 09:04] LABS: INR 1.05 (0.87-1.13)
--- NOTE | 2018-05-09 10:18 | Ultrasound Report ---
ULTRASOUND OB LESS THAN 14 WEEKS FETUS ULTRASOUND OB TRANSVAGINAL HISTORY: Ectopic . COMPARISON: 05/07/18. TECHNIQUE: Transabdominal and transvaginal ultrasound with color doppler interrogation. FINDINGS: Uterus: The uterus is anteverted and measures 8.3 x 4.2 x 5.6 cm. No uterine fibroids are identified. Normal cervix. Endometrium: The endometrium measures 1.1 cm in thickness. No intrauterine is demonstrated. Right ovary: The right ovary measures 3.1 x 1.9 x 3.2 cm. A complex cyst measuring 1.8 cm is identified in the right ovary which probably represents a corpus luteum cyst. Adjacent to the right ovary there is a complex cystic mass measuring up to 2.5 cm in diameter. I believe I see a small yolk sac and pole within this structure. [place]-rump length measures 2.3 mm which correlates with a 5 week 5 day . There appears to be a heart rate measuring 95 beats per minute. Left ovary: 3.2 x 1.6 x 2.8 cm. No focal abnormality. Small to medium pelvic fluid is seen in the cul-de-sac which appears relatively stable since the previous exam. IMPRESSION: Findings highly suggestive of an ectopic on the right side. Please see above. These findings were discussed with Dr. Zaldivar in the emergency department at 1005 hrs.
[2018-05-09 12:05] LABS: Bacteria,Urine 1+ /HPF (Negative); Bilirubin,Urine NEG (Negative); Blood,Urine NEG (Negative); Color,Urine Straw (Yellow); Protein,Urine <15 mg/dL mg/dL (Negative); RBC,Urine < 1.0 /HPF (0.0-6.0); WBC,Urine < 1.0 /HPF (0.0-6.0)
--- NOTE | 2018-05-09 12:11 | Short Stay Summary ---
Short Stay Documentation Date of service: 05/09/18 Narrative H&P: Patient is a 22 year old who presents with an another ectopic . Patient was given methotrexate on Monday but returned to Ed today with worsening pain. - History Past Medical History: No medical history Past Surgical History: Other (laparoscopy) Social history: single - Allergies and Medications Current Medications: Allergies peanut Allergy (Verified 05/09/18 07:45) Swelling Home Medications Medication Instructions Recorded Confirmed Last Taken Type Ibuprofen [Motrin] 600 mg PO Q8H PRN #14 tablet 09/28/16 09/29/16 09/29/16 Rx oxyCODONE /ACETAMINOPHEN [Percocet 1 tab PO Q6HR PRN #8 tablet 09/28/1609/29/16 Rx 5/325] Docusate Sodium [Colace] 100 mg PO BID PRN #60 capsule 09/30/16 Unknown Rx Ferrous Sulfate [Feosol 325 MG tab] 325 mg PO TID #90 tablet 09/30/16 Unknown Rx Ibuprofen [Motrin 600 MG tab] 600 mg PO Q6H PRN #30 tablet 09/30/16 Unknown Rx oxyCODONE /ACETAMINOPHEN [Percocet 1 tab PO Q6HR PRN #30 tablet 09/30/16 Unknown Rx 5/325] HYDROcodone/ACETAMINOPHEN [[place] 1 each PO Q8H PRN #15 tablet 05/07/18 Unknown Rx 7.5-325 Tablet] metroNIDAZOLE 0.75%(NF) [Metrogel 1 applicatio TP BID 5 Days tube 05/07/18 Unknown Rx 0.75% TOPICAL] - Physical exam General appearance: no acute distress Integumentary: no rash, no growths, no abnormal pigmentation Lungs: Clear to auscultation, Normal air movement Breasts: deferred Heart: Regular rate, Normal S1, Normal S2 Gastrointestinal: normal, normoactive bowel sounds Female Genitourinary: normal Rectal Exam: deferred Extremities: no ischemia - Brief post op/procedure progress note Date of procedure: 05/09/18 Pre-op diagnosis: Right Ectopic Post-op diagnosis: same Procedure: Laparoscopic right salpingectomy Anesthesia: GETA Findings: enlarged and dilated right tube consistent with ectopic. Extensive pelvic adhesions. Extensive evidence of endometriosis Surgeon: ANITA JO Estimated blood loss: 50-100ml Pathology: list (right tube and products of conception) Specimen disposition: to lab - Hospital course Hospital course: unremarkable - Disposition Condition at discharge: Good Disposition: DC-01 TO HOME OR SELFCARE Short Stay Discharge Plan Activity: advance as tolerated Weight Bearing Status: Weight Bear as Tolerated Diet: regular Wound: keep clean and dry Follow up with: PRIMARY CARE, [Primary Care Provider] - 3-5 Days ANITA JO MD [Staff Physician] - 14 Days Prescriptions: HYDROcodone/ACETAMINOPHEN [[place] 7.5-325 Tablet] 1 each PO Q8H PRN #15 tablet PRN Reason: Pain , Severe (7-10) Ibuprofen [Motrin 600 MG tab] 600 mg PO Q6H PRN #30 tablet PRN Reason: Pain
[2018-05-09] MEDS ORDERED: VERSED IV ONE (13:50)
[2018-05-09] MEDS ORDERED: DUONEB *Not for PRN Use IH ONE (13:50)
[2018-05-09] MEDS ORDERED: DILAUDID IV ONE (13:50)
[2018-05-09] MEDS ORDERED: DIPRIVAN 10 MG/ML IV ONE (14:06)
[2018-05-09] MEDS ORDERED: XYLOCAINE MPF 2% ONE (14:06)
[2018-05-09] MEDS ORDERED: SUBLIMAZE ONE (14:06)
[2018-05-09] MEDS ORDERED: ZEMURON IV ONE (14:06)
[2018-05-09] MEDS ORDERED: MARCAINE 0.5% INFILTRATI ONE ×2 (14:21→15:00)
[2018-05-09] MEDS ORDERED: ANCEF ONE (14:38)
[2018-05-09] MEDS ORDERED: NACL 0.9% 1000 ML 1,000 ML ONE (14:42)
[2018-05-09] MEDS ORDERED: NACL 0.9% IR ONE (15:00)
[2018-05-09] MEDS ORDERED: DECADRON ONE (15:01)
[2018-05-09] MEDS ORDERED: ZOFRAN ONE (15:01)
[2018-05-09] MEDS ORDERED: ROBINUL ONE (15:37)
[2018-05-09] MEDS ORDERED: BLOXIVERZ ONE (15:37)
--- NOTE | 2018-05-09 15:48 | Operative Report ---
Operative Report Operative Report: Preoperative diagnosis: Undesired fertility Postoperative diagnosis: Same Procedure: Bilateral laparoscopic salpingectomy Surgeon: Sylwia Walden Anesthesia: General EBL: Minimal IV fluids: [900] Urine output:[100] Findings:[Normal uterus tubes and ovaries] Specimens: Portion of right and left fallopian tube Complications: None The patient was properly identified as herself. She was then taken to the OR with IV running and in place. She was given general anesthesia without difficulty. She was placed in a dorsal lithotomy position. She was then prepped and draped in normal sterile fashion. Attention was turned to the patient's vagina. Her bladder was drained of clear urine with a red rubber catheter. The speculum was then placed the patient's vagina. The cervix was visualized and grasped with tenaculum. The acorn cannula was then inserted. The surgeon's gloves were changed and attention turned to the patient's abdomen. A small incision was made in the patient's umbilicus incision a 5 mm trocar was placed. The laparoscope confirmed intra-abdominal placement. The abdomen was insufflated with CO2 gas to approximately 25 mmHg. Both fallopian tubes were identified. With direct visualization a second trocar was placed through an incision in the left lower quadrant. Both tubes were found and followed out to the fimbriated ends. Each tube was cauterized at the portion nearest the cornua, then cauterized across the broad ligament until the tube was completely detached. There was excellent hemostasis at the end of this portion of the procedure. Each tube was handed off for pathology. At this point the abdomen was deflated. All instruments were then removed from the abdomen. The incisions were then closed with 4-0 Monocryl. The incisions were also injected with quarter percent Marcaine. The patient tolerated the procedure well she was then awakened and taken recovery in stable condition. Sponge needle and instrument counts were correct 2.
[2018-05-09] MEDS ORDERED: PERCOCET 5/325 PO PRN (16:13)
[2018-05-09 17:40] VITALS: BP 114/50
--- NOTE | 2018-05-09 23:28 | Post Anesthesia Evaluation ---
- Post Anesthesia Evaluation Patient Participated: Yes Airway Patent: Yes Stable Respiratory Function: Yes Nausea/Vomiting: No Temp > 96.8F: No Pain Manageable: Yes Adequeate Hydration: Yes Anesthesia Complications: No
== END 2018-05-09 17:17 | disposition home or self-care (01) | DRG 777 ==
LOC: ED 07:40 → OB 11:44
PROVIDERS: ADMIT Obstetrics & Gynecology; ATTEND Obstetrics & Gynecology
PROC: 0UT74ZZ Resection of Bilateral Fallopian Tubes, Percutaneous Endoscopic Approach (ICD-10-PCS; principal; 2018-05-09)
DX: O00.101 Right tubal pregnancy without intrauterine pregnancy (principal); N80.2 Endometriosis of fallopian tube; Z79.899 Other long term (current) drug therapy; Z91.010 Allergy to peanuts
CPT/HCPCS: 36415; 51701; 76801; 76817; 81001; 83690; 84702; 85025; 85610; 86850; 86900; 86901; 88305; 96361; 96375; J0690; J1100; J1170; J2250; J2270; J2405; J2704; J2710; J3010; J7030

== ENCOUNTER 2021-01-19 20:23 | Emergency (ER) | payer SELFPAY | END 2021-01-19 21:42 | LOC: ED 20:23 ==

== ENCOUNTER 2022-01-21 10:21 | Emergency (ER) | payer SELFPAY ==
[2022-01-21 11:48] LABS: Bacteria,Urine 1+ /HPF (Negative); Bilirubin,Urine NEG (Negative); Blood,Urine MOD (Negative); Color,Urine Yellow (Yellow); Mucus,Urine FEW /HPF; Protein,Urine <15 mg/dL mg/dL (Negative); Urobilinogen,Urine < 2.0 mg/dL (<2.0)
--- NOTE | 2022-01-21 15:12 | Emergency Department Report ---
ED Female HPI - General Chief complaint: Abdominal Pain Stated complaint: RT SIDE FLANK PAIN Source: patient Mode of arrival: Ambulatory Limitations: No Limitations - History of Present Illness Initial comments: 26-year-old female presents to the ED complaining of dysuria x1 day. Patient states that she works long hours and do not often get emptying her bladder. Patient stated on yesterday she noticed to have some abdominal cramping with some nausea. Patient states no abdominal cramping today but some nausea. Patient states some urgency and frequency has increased today. Patient denies any vaginal discharge. She states that last menstrual cycle was on December 25. She denies any possibility of being . Patient states she has no fallopian tube. Patient is alert and oriented x3. No acute distress noted. No ill appearance noted. MD Complaint: dysuria Onset/Timin -: week(s) Quality: cramping Consistency: intermittent Improves with: urination - Related Data Previous Rx's Medication Instructions Recorded Last Taken Type Ibuprofen [Motrin] 600 mg PO Q8H PRN #14 tablet 09/28/16 09/29/16 Rx oxyCODONE /ACETAMINOPHEN [Percocet 1 tab PO Q6HR PRN #8 tablet 09/28/16 09/29/16 Rx 5/325] Docusate Sodium [Colace] 100 mg PO BID PRN #60 capsule 09/30/16 Unknown Rx Ferrous Sulfate [Feosol 325 MG tab] 325 mg PO TID #90 tablet 09/30/16 Unknown Rx oxyCODONE /ACETAMINOPHEN [Percocet 1 tab PO Q6HR PRN #30 tablet 09/30/16 Unknown Rx 5/325] metroNIDAZOLE 0.75%(NF) [Metrogel 1 applicatio TP BID 5 Days tube 05/07/18 Unknown Rx 0.75% TOPICAL] HYDROcodone/ACETAMINOPHEN [[place] 1 each PO Q8H PRN #15 tablet 05/09/18 Unknown Rx 7.5-325 Tablet] Ibuprofen [Motrin 600 MG tab] 600 mg PO Q6H PRN #30 tablet 05/09/18 Unknown Rx Albuterol Mdi (or & Nicu Only) 1 puff IH Q4-6H PRN #1 inha 04/01/20 Unknown Rx [ProAir HFA Inhaler] Azithromycin [Zithromax] 500 mg PO QDAY #5 tablet 04/01/20 Unknown Rx guaiFENesin/CODEINE [Robitussin AC] 5 ml PO Q6H PRN #120 ml 04/01/20 Unknown Rx Hyoscyamine Subl [Levsin Sl 0.125 0.125 mg SL Q4HR PRN 5 Days #20 01/21/22 Unknown Rx TAB] tablet Ondansetron (Nf) [Zofran TAB] 8 mg PO Q8HR PRN 3 Days #12 tablet 01/21/22 Unknown Rx levoFLOXacin [Levaquin TAB] 750 mg PO QDAY 7 Days #7 tablet 01/21/22 Unknown Rx Allergies Allergy/AdvReac Type Severity Reaction Status Date / Time peanut Allergy Swelling Verified 01/21/22 10:58 ED Review of Systems ROS: Stated complaint: RT SIDE FLANK PAIN Other details as noted in HPI Constitutional: denies: chills, fever Eyes: denies: eye pain, eye discharge, vision change ENT: denies: ear pain, throat pain Respiratory: denies: cough, shortness of breath, wheezing Cardiovascular: denies: chest pain, palpitations Endocrine: no symptoms reported Gastrointestinal: nausea. denies: abdominal pain, diarrhea Genitourinary: urgency, dysuria, frequency. denies: discharge Musculoskeletal: denies: back pain, joint swelling, arthralgia Skin: denies: rash, lesions Neurological: denies: headache, weakness, paresthesias Psychiatric: denies: anxiety, depression Hematological/Lymphatic: denies: easy bleeding, easy bruising ED Past Medical Hx - Past Medical History Hx Pulmonary Embolism: No Hx Asthma: Yes (USES INHALER PRN) Hx COPD: No Hx Tuberculosis: No Additional medical history: ectopic X 3 - Surgical History Additional Surgical History: Left Salpingectomy - Social History Smoking Status: Never Smoker Substance Use Type: None - Medications Home Medications: Home Medications Medication Instructions Recorded Confirmed Last Taken Type Ibuprofen [Motrin] 600 mg PO Q8H PRN #14 tablet 09/28/16 09/29/16 09/29/16 Rx oxyCODONE /ACETAMINOPHEN [Percocet 1 tab PO Q6HR PRN #8 tablet 09/28/16 09/29/16 09/29/16 Rx 5/325] Docusate Sodium [Colace] 100 mg PO BID PRN #60 capsule 09/30/16 Unknown Rx Ferrous Sulfate [Feosol 325 MG tab] 325 mg PO TID #90 tablet 09/30/16 Unknown Rx oxyCODONE /ACETAMINOPHEN [Percocet 1 tab PO Q6HR PRN #30 tablet 09/30/16 Unknown Rx 5/325] metroNIDAZOLE 0.75%(NF) [Metrogel 1 applicatio TP BID 5 Days tube 05/07/18 Unknown Rx 0.75% TOPICAL] HYDROcodone/ACETAMINOPHEN [[place] 1 each PO Q8H PRN #15 tablet 05/09/18 Unknown Rx 7.5-325 Tablet] Ibuprofen [Motrin 600 MG tab] 600 mg PO Q6H PRN #30 tablet 05/09/18 Unknown Rx Albuterol Mdi (or & Nicu Only) 1 puff IH Q4-6H PRN #1 inha 04/01/20 Unknown Rx [ProAir HFA Inhaler] Azithromycin [Zithromax] 500 mg PO QDAY #5 tablet 04/01/20 Unknown Rx guaiFENesin/CODEINE [Robitussin AC] 5 ml PO Q6H PRN #120 ml 04/01/20 Unknown Rx Hyoscyamine Subl [Levsin Sl 0.125 0.125 mg SL Q4HR PRN 5 Days #20 01/21/22 Unknown Rx TAB] tablet Ondansetron (Nf) [Zofran TAB] 8 mg PO Q8HR PRN 3 Days #12 tablet 01/21/22 Unknown Rx levoFLOXacin [Levaquin TAB] 750 mg PO QDAY 7 Days #7 tablet 01/21/22 Unknown Rx ED Physical Exam - General Limitations: No Limitations General appearance: alert, in no apparent distress - Head Head exam: Present: atraumatic, normocephalic - Eye Eye exam: Present: normal appearance - ENT ENT exam: Present: mucous membranes moist - Neck Neck exam: Present: normal inspection - Respiratory Respiratory exam: Present: normal lung sounds bilaterally. Absent: respiratory distress - Cardiovascular Cardiovascular Exam: Present: regular rate, normal rhythm. Absent: systolic murmur, diastolic murmur, rubs, gallop - GI/Abdominal GI/Abdominal exam: Present: soft, normal bowel sounds - Extremities Exam Extremities exam: Present: normal inspection - Back Exam Back exam: Present: normal inspection - Neurological Exam Neurological exam: Present: alert, oriented X3 - Psychiatric Psychiatric exam: Present: normal affect, normal mood - Skin Skin exam: Present: warm, dry, intact, normal color. Absent: rash ED Course Vital Signs 01/21/22 10:55 Temperature 98.7 F Pulse Rate 89 Respiratory 16 Rate Blood Pressure 117/78 [Left] O2 Sat by Pulse 99 Oximetry ED Medical Decision Making - Medical Decision Making 26-year-old female presents to the ED complaining of dysuria x1 day. Patient states that she works long hours and do not often get emptying her bladder. Patient stated on yesterday she noticed to have some abdominal cramping with some nausea. Patient states no abdominal cramping today but some nausea. Patient states some urgency and frequency has increased today. Patient denies any vaginal discharge. She states that last menstrual cycle was on December 25. She denies any possibility of being . Patient states she has no fallopian tube. Patient is alert and oriented x3. No acute distress noted. No ill appearance noted. Physical examination is unremarkable. Urinalysis is show UTI. Rechecked the patient is resting quietly quietly and comfortable and feeling better. I discussed the results of diagnostic study, my clinical impression and the plan for further treatment with the patient. Patient agrees with plan and discharge at this present time. All question addressed. I have given the patient instruction regarding a diagnosis ,expectation ,follow- up and return precaution. I explained to the patient that emergent condition may arise and to return to the ED for new worsen and any new persisting condition. I have explained the importance of following up with the primary care physician or referral physician listed below has instructed. The patient verbalized understanding of discharge instruction. Abnormal Lab Results 01/21/22 11:22 Urine Color Yellow Urine Turbidity Slightly-cloudy Urine pH 6.0 Ur Specific [place] 1.011 Urine Protein <15 mg/dl Urine Glucose (UA) Neg Urine Ketones Neg Urine Blood Mod Urine Nitrite Neg Urine Bilirubin Neg Urine Urobilinogen < 2.0 Ur Leukocyte Esterase Lg Urine WBC (Auto) 61.0 H Urine RBC (Auto) 9.0 U Epithel Cells (Auto) 5.0 Urine Bacteria (Auto) 1+ Ur Transition Epith Cell 1 Urine Mucus Few Critical care attestation.: If time is entered above; I have spent that time in minutes in the direct care of this critically ill patient, excluding procedure time. ED Disposition Clinical Impression: Acute urinary tract infection Disposition: 01 HOME / SELF CARE / HOMELESS Is pt being admited?: No Does the pt Need Aspirin: No Condition: Stable Instructions: Abdominal Pain (ED), Urinary Tract Infection, Adult, [id number], Antibiotic Medicine, Adult Additional Instructions: Take medication as prescribed Return to the ED for any worse symptoms Prescriptions: levoFLOXacin [Levaquin TAB] 750 mg PO QDAY 7 Days #7 tablet Hyoscyamine Subl [Levsin Sl 0.125 TAB] 0.125 mg SL Q4HR PRN 5 Days #20 tablet PRN Reason: Spasms Ondansetron (Nf) [Zofran TAB] 8 mg PO Q8HR PRN 3 Days #12 tablet PRN Reason: Nausea Referrals: [facility] [Provider Group] - 3-5 Days Forms: Work/School Release Form(ED) Time of Disposition: 15:21
[2022-01-21 15:26] VITALS: BP 124/69
== END 2022-01-23 12:17 | disposition home or self-care (01) ==
LOC: ED 10:21
DX: N39.0 Urinary tract infection, site not specified (principal); J45.909 Unspecified asthma, uncomplicated
CPT/HCPCS: 81001; 87076; 87086; 87186; 99283